=== PATIENT | female | born 1980 | race Two or more races ===

== ENCOUNTER 2023-08-23 08:03 | Outpatient (CLI) | payer OTHER ==
[2023-08-23 09:11] LABS: HEMOGLOBIN 13.9 g/dL (12.0-15.00); MEAN CELL VOLUME 92.7 fL (80.00-100.00); MEAN CORPUSCULAR HEMOGLOBIN 32.2 pg (27.00-32.0); MEAN CORPUSCULAR HGB CONC 34.8 g/dl (32.0-36.0); PLATELET COUNT 268 K/uL (150-450); RED BLOOD COUNT 4.31 M/uL (4.00-6.00); RED CELL DISTRIBUTION WIDTH 13.6 % (11.5-14.5)
[2023-08-23 09:17] LABS: URINE APPEARANCE Clear; URINE BILIRRUBIN Negative (NEGATIVE); URINE BLOOD Negative; URINE COLOR Yellow; URINE GLUCOSE Negative (NEGATIVE); URINE LEUKOCYTE Negative; URINE NITRATE Negative; URINE PROTEIN Negative (NEGATIVE)
[2023-08-23 09:22] LABS: ERYTHROCYTE SEDIMENTATION RATE 10 mm/hr
[2023-08-23 09:23] LABS: URINE BACTERIA 580.7 uL (0.0-1933); URINE EPITHELIAL CELLS 32.1 uL (0.0-38.8); URINE RBC 12.6 uL (0.0-20.8); URINE WBC 5.7 uL (0.0-23.2)
[2023-08-23 09:50] LABS: ALBUMIN 3.7 gm/dL (3.4-5.0); BILIRUBIN TOTAL 0.81 mg/dL (0.3-1.2); CALCIUM 8.7 mg/dL (8.5-10.1); CHOL HDL RATIO 2.8 (0-5.0); CREATININE SERUM 0.6 mg/dL (0.55-1.02); GFR 108.11; GLOBULINA 3.4 G/DL (2.4-3.5); POTASSIUM 4.16 mEq/L (3.5-5.1); T4 FREE 0.88 NG/ML (0.76-1.46); TOTAL PROTEIN 7.1 gm/dL (6.4-8.2); TSH 0.907 uIU/mL (0.358-3.74)
[2023-08-23 11:39] LABS: RF NEGATIVE (NEGATIVE)
[2023-08-23 15:33] LABS: RAPID PLASMA REAGIN NONREACTIVE BY RPR (NONREACTIVE)
[2023-08-24 05:07] LABS: hav igm Negative (Negative); hcv Non Reactive (Non Reactive); hep b c Negative (Negative)
[2023-08-25 13:05] LABS: chla t Negative (Negative); neiss Negative (Negative)
== END 2023-08-23 08:10 | disposition home or self-care (01) ==
LOC: LAB 08:03
PROVIDERS: ATTEND General Practice
DX: R51.9 Headache, unspecified (principal); Z13.1 Encounter for screening for diabetes mellitus; Z13.220 Encounter for screening for lipoid disorders; Z13.228 Encounter for screening for other metabolic disorders; Z12.11 Encounter for screening for malignant neoplasm of colon; R10.9 Unspecified abdominal pain; Z11.3 Encounter for screening for infections with a predominantly sexual mode of transmission; R10.2 Pelvic and perineal pain

== ENCOUNTER 2023-08-23 08:50 | Outpatient (CLI) | payer OTHER | END 2023-08-23 08:52 | disposition home or self-care (01) | LOC: TOM 08:50 | PROVIDERS: ATTEND General Practice | DX: R51.9 Headache, unspecified (principal); R42 Dizziness and giddiness; M54.2 Cervicalgia | CPT/HCPCS: 72141 ==

== ENCOUNTER 2023-08-29 14:26 | Outpatient (CLI) | payer OTHER ==
[2023-08-29 15:18] LABS: ob NEGATIVE (NEGATIVE)
== END 2023-08-29 14:44 | disposition home or self-care (01) ==
LOC: LAB 14:26
DX: R51.9 Headache, unspecified (principal); Z13.1 Encounter for screening for diabetes mellitus; Z13.220 Encounter for screening for lipoid disorders; Z13.228 Encounter for screening for other metabolic disorders; Z12.11 Encounter for screening for malignant neoplasm of colon; R10.9 Unspecified abdominal pain; Z11.3 Encounter for screening for infections with a predominantly sexual mode of transmission; R10.2 Pelvic and perineal pain

== ENCOUNTER 2023-09-11 08:11 | Outpatient (CLI) | payer OTHER | END 2023-09-11 08:20 | disposition home or self-care (01) | LOC: TOM 08:11 | PROVIDERS: ATTEND General Practice | DX: R10.2 Pelvic and perineal pain (principal); R10.9 Unspecified abdominal pain; R11.0 Nausea ==

== ENCOUNTER 2023-10-04 11:00 | Outpatient (CLI) | payer OTHER | END 2023-10-04 11:10 | disposition home or self-care (01) | LOC: MRI 11:00 | PROVIDERS: ATTEND General Practice | DX: R51.9 Headache, unspecified (principal); R63.4 Abnormal weight loss; N92.5 Other specified irregular menstruation | CPT/HCPCS: 70552 ==

== ENCOUNTER 2023-11-01 10:50 | Outpatient (CLI) | payer OTHER | END 2023-11-01 11:06 | disposition home or self-care (01) | LOC: SONOGRAMA 10:50 | DX: N83.202 Unspecified ovarian cyst, left side (principal) ==

== ENCOUNTER 2024-09-18 11:34 | Outpatient (CLI) | payer OTHER | END 2024-09-18 11:42 | disposition home or self-care (01) | LOC: RAD 11:34 | PROVIDERS: ATTEND General Practice | DX: M79.675 Pain in left toe(s) (principal); S90.932A Unspecified superficial injury of left great toe, initial encounter ==

== ENCOUNTER 2025-01-18 13:03 | Outpatient (CLI) | payer OTHER | END 2025-01-18 13:10 | disposition home or self-care (01) | LOC: RAD 13:03 | PROVIDERS: ATTEND General Practice | DX: M79.641 Pain in right hand (principal); R20.2 Paresthesia of skin; M54.2 Cervicalgia | CPT/HCPCS: 72141 ==